=== PATIENT | female | born 1975 | race African-American/Black ===

== ENCOUNTER 2019-11-28 20:40 | Observation (INO) | payer OTHER ==
[2019-11-28 20:49] VITALS: BMI 26.3
--- NOTE | 2019-11-28 20:51 | PDOC ---
Rapid Medical Evaluation Time Seen by Provider: 11/28/19 20:49 Medical Evaluation: Allergies Allergy/AdvReac Type Severity Reaction Status Date / Time No Known Allergies Allergy Verified 10/25/14 12:00 11/28/19 20:49 This patient had rapid medical evaluation in triage cc: chest tightness today HPI: patient brought in by ambulance for chest tightness this afternoon States non compliant with b/p medication. States symptoms has since resolved PE: NAD clear lungs bilaterally heart s1s2 ext: no pedal edema Orders: ekg ordered This patient will proceed to ed for further evaluation. Discharge Disposition - Diagnosis Chest tightness - Referrals - Patient Instructions - Post Discharge Activity
--- NOTE | 2019-11-28 23:02 | PDOC ---
*Physical Exam - Vital Signs Last Vital Signs Temp Pulse Resp BP Pulse Ox 98.2 F 96 H 19 155/90 100 11/28/19 20:45 11/28/19 20:45 11/28/19 20:45 11/28/19 20:45 11/28/19 20:45 ED Treatment Course - LABORATORY CBC & Chemistry Diagram: 11/29/19 00:12 11/29/19 00:12 Medical Decision Making - Medical Decision Making 11/28/19 23:02 Patient seen by the advanced practice provider under my supervision. Ancillary testing reviewed as necessary. I agree with plan as outlined by the advanced practice provider. Discharge - Discharge Information Problems reviewed: Yes Clinical Impression/Diagnosis: Chest tightness - Follow up/Referral Referrals: Osito Hahn [Primary Care Provider] - - Patient Discharge Instructions - Post Discharge Activity
--- NOTE | 2019-11-28 23:32 | PDOC ---
History of Present Illness - General Chief Complaint: Blood Pressure Problem Stated Complaint: CHEST TIGHTNESS/HYPERTENSION Time Seen by Provider: 11/28/19 20:49 History Source: Patient - History of Present Illness Initial Comments: 11/29/19 00:39 44-year-old female with history of hypertension complaining of midsternal chest pain for since 8 PM. Denies nausea, vomiting, diaphoresis, dizziness, headache. Patient reports that symptom resolved. Patient reports that 1 week ago she started Norvasc for hypertension Past History - Past Medical History Allergies/Adverse Reactions: Allergies Allergy/AdvReac Type Severity Reaction Status Date / Time No Known Allergies Allergy Verified 11/29/19 02:14 Home Medications: Ambulatory Orders Amlodipine Besylate [Norvasc -] 5 mg PO DAILY 11/29/19 COPD: No HTN: Yes - Psycho Social/Smoking Cessation Hx Smoking Status: No Smoking History: Never smoked Number of Cigarettes Smoked Daily: 0 Hx Alcohol Use: No Substance Use Type: None *Physical Exam - Vital Signs Last Vital Signs Temp Pulse Resp BP Pulse Ox 98.2 F 96 H 19 155/90 100 11/28/19 20:45 11/28/19 20:45 11/28/19 20:45 11/28/19 20:45 11/28/19 20:45 - Physical Exam General Appearance: Yes: Appropriately Dressed Respiratory/Chest: positive: Lungs Clear, Normal Breath Sounds. negative: Chest Tender Cardiovascular: positive: Regular Rhythm, Regular Rate Gastrointestinal/Abdominal: positive: Normal Bowel Sounds, Soft. negative: Tender Extremity: positive: Normal Capillary Refill, Normal Inspection, Normal Range of Motion Integumentary: positive: Normal Color, Dry, Warm Neurologic: positive: Fully Oriented, Alert Heart Score/ECG Review - History History: Slightly suspicious - Electrocardiogram EKG: Normal - Age Age: </= 45 - Risk Factors Risk Factors Heart Score: Yes Hx Hypertension Based on the list above the patient has:: 1-2 risk factors - Troponin Troponin: >/=3x normal limit - Score Heart Score - Total: 3 - ECG Intrepretation Rhythm: Regular Rhythm Comment:: 11/29/19 01:29 T wave inversion in V3 ED Treatment Course - LABORATORY CBC & Chemistry Diagram: 11/29/19 00:12 11/29/19 00:12 Medical Decision Making - Medical Decision Making 11/29/19 01:30 A: chest pain P: cbc cmp cardiac EKG Chest xray 11/29/19 03:00 repeat EKG unchanged. pending repeat trop 11/29/19 06:09 repeat trop trending down. patient to be admitted for further management of care. Discharge - Discharge Information Problems reviewed: Yes Clinical Impression/Diagnosis: Chest pain Qualifiers: Chest pain type: unspecified Qualified Code(s): R07.9 - Chest pain, unspecified - Admission Yes - Follow up/Referral - Patient Discharge Instructions - Post Discharge Activity
[2019-11-29 00:29] LABS: BASO % 0.5 % (0-2.0); EOS % 0.1 % (0-4.5); HEMATOCRIT 41.7 % (32.4-45.2); HEMOGLOBIN 14.1 GM/dL (10.7-15.3); LYMPH % 27.4 % (8-40); MCH 31.4 pg (25.7-33.7); MCHC 33.9 g/dl (32.0-36.0); MEAN CELL VOLUME 92.8 fl (80-96); MEAN PLT VOLUME 8.6 fl (7.5-11.1); MONO % 5.6 % (3.8-10.2); NEUT % 66.4 % (42.8-82.8); PLATELET COUNT 233 K/MM3 (134-434); RDW 12.9 % (11.6-15.6); WHITE BLOOD COUNT 7.7 K/mm3 (4.0-10.0)
[2019-11-29] MEDS ORDERED: ASPIRIN 81 MG CHEWABLE TABLETS PO ONE (00:34)
[2019-11-29] MEDS ORDERED: ASPIRIN 81 MG CHEWABLE TABLETS ONE ×2 (00:38→07:59)
[2019-11-29 00:42] LABS: INR 1.02 (0.83-1.09)
[2019-11-29 01:00] LABS: ALBUMIN 4.3 g/dl (3.4-5.0); BILIRUBIN,TOTAL 0.6 mg/dL (0.2-1); CALCIUM 9.4 mg/dL (8.5-10.1); POTASSIUM 4.2 mmol/L (3.5-5.1)
[2019-11-29 01:11] LABS: URINE APPEARANCE CLEAR; URINE BILIRUBIN NEGATIVE (NEGATIVE); URINE COLOR YELLOW; URINE GLUCOSE (UA) NEGATIVE (NEGATIVE); URINE KETONE NEGATIVE (NEGATIVE); URINE LEUK ESTERASE NEGATIVE (NEGATIVE); URINE NITRITE NEGATIVE (NEGATIVE); URINE PROTEIN NEGATIVE (NEGATIVE); URINE UROBILINOGEN 0.2 mg/dL (0.2-1.0)
--- NOTE | 2019-11-29 02:41 | PN ---
Teaching Attending Note Name of Resident: Roque Elise ATTENDING PHYSICIAN STATEMENT I saw and evaluated the patient. I reviewed the resident's note and discussed the case with the resident. I agree with the resident's findings and plan as documented. SUBJECTIVE: 44-year-old woman with history of hypertension, Anxiety complaining of midsternal chest pain since 8 PM on 11/28/2019. No associated shortness of breath, nausea, vomiting, diaphoresis. Chest pain lasted less than 1 minute, has not had prior episodes of this. She was recently started on amlodipine for hypertension however has developed lower extremity swelling and is generally not tolerating this medication well so she has not been taking it. OBJECTIVE: Last Vital Signs Temp Pulse Resp BP Pulse Ox 98.2 F 94 H 18 150/94 100 11/28/19 20:45 11/29/19 01:33 11/29/19 01:33 11/29/19 01:33 11/29/19 01:33 GENERAL: Well developed, well nourished. Awake and alert. No acute distress. HEENT: Normocephalic, atraumatic. PERRLA, EOMI. No conjunctival pallor. Sclera are non- icteric. Moist mucous membranes. Oropharynx is clear. NECK: Supple. Full ROM. No JVD. Carotid pulses 2+ and symmetric, without bruits. No thyromegaly. No lymphadenopathy. CARDIOVASCULAR: Regular rate and rhythm. No murmurs, rubs, or gallops. Distal pulses are 2+ and symmetric. PULMONARY: No evidence of respiratory distress. Lungs clear to auscultation bilaterally. No wheezing, rales or rhonchi. ABDOMINAL: Soft. Non-tender. Non-distended. No rebound or guarding. No organomegaly. Normoactive bowel sounds. MUSCULOSKELETAL Normal range of motion at all joints. No bony deformities or tenderness. No CVA tenderness. EXTREMITIES: No cyanosis. No clubbing. No edema. No calf tenderness. SKIN: Warm and dry. Normal capillary refill. No rashes. No jaundice. PSYCHIATRIC: Cooperative. Good eye contact. Appropriate mood and affect. Abnormal Lab Results 11/29/19 11/29/19 00:12 00:12 Anion Gap 7 L Random Glucose 112 H Troponin I 0.12 H Chest x-ray reviewed ASSESSMENT AND PLAN: 44-year-old woman with Atypical chest pain that is now resolved with mildly elevated troponin. Sinus tachycardia, EKG was essentially normal. Doubt true ACS at this time Telemetry observation Cardiology evaluation Transthoracic echo Trend troponins Aspirin Statin Nitroglycerin sublingual as needed of chest pain #Uncontrolled hypertension Stop amlodipine and start hydrochlorothiazide Salt restriction UA SCDs for DVT prophylaxis
--- NOTE | 2019-11-29 03:02 | HP ---
CHIEF COMPLAINT: chest pain PCP: HISTORY OF PRESENT ILLNESS: Patient is a 44 year old female with history of hypertension (not adherent with Amlodipine), anxiety, presents with complaint of chest pain. Patient states that she was driving in her car approx 8PM on the way to grocery store when she experienced sudden onset chest pressure. Patient states symptoms were associated with shortness of breath, and palpitations. Lasted less than one minute before spontaneous resolution. Patient believes she may have had similar symptoms approx 10 years ago after of her first child. She endorses an ? exercise stress test that she was told was negative. Patient denies any cardiac catheterization or other cardiac workup. She admits that she was recently started on Amlodipine by her primary care physician, however has been non- adherent due to subjective pain in her legs after starting the medication. She states that when she checks her BP at home it is in the 120s / 80s. She last took Amlodipine two days ago. Currently comfortably resting in ED. Denies any recurrence of chest tightness or pain. Denies subjective fevers, chills, shortness of breath, chest pain, palpitations, abdominal pain, nausea, vomiting. DIRECTOR OF EDUCATION: female. LMP was last week. Sexually active with only; does not use contraceptives. ER course was notable for: (1) EKG, Troponin 0.12 (2) (3) Recent Travel: PAST MEDICAL HISTORY: hypertension PAST SURGICAL HISTORY: denies Family History: Noncontributory. Denies cardiac history in her maternal/ paternal lineage. Denies any known cancer history. Social History: Former pharmacist. Currently lives at home with her sister and two children. Independent in activities of daily living. Smoking: Denies Alcohol: Denies Drugs: Denies Allergies No Known Allergies Allergy (Verified 11/29/19 02:14) HOME MEDICATIONS: Home Medications Medication Instructions Recorded Amlodipine Besylate [Norvasc -] 5 mg PO DAILY 11/29/19 REVIEW OF SYSTEMS CONSTITUTIONAL: Absent: fever, chills, diaphoresis, generalized weakness, malaise, loss of appetite, weight change HEENT: Absent: rhinorrhea, nasal congestion, throat pain, throat swelling, difficulty swallowing, mouth swelling, ear pain, eye pain, visual changes CARDIOVASCULAR: Admits: chest pain (resolved). Absent: syncope, palpitations, irregular heart rate, lightheadedness, peripheral edema RESPIRATORY: Absent: cough, shortness of breath, dyspnea with exertion, orthopnea, wheezing, stridor, hemoptysis GASTROINTESTINAL: Absent: abdominal pain, abdominal distension, nausea, vomiting, diarrhea, constipation, melena, hematochezia GENITOURINARY: Absent: dysuria, frequency, urgency, hesitancy, hematuria, flank pain, genital pain MUSCULOSKELETAL: Absent: myalgia, arthralgia, joint swelling, back pain, neck pain SKIN: Absent: rash, itching, pallor HEMATOLOGIC/IMMUNOLOGIC: Absent: easy bleeding, easy bruising, lymphadenopathy, frequent infections ENDOCRINE: Absent: unexplained weight gain, unexplained weight loss, heat intolerance, cold intolerance NEUROLOGIC: Absent: headache, focal weakness or paresthesias, dizziness, unsteady gait, seizure, mental status changes, bladder or bowel incontinence PSYCHIATRIC: Absent: anxiety, depression, suicidal or homicidal ideation, hallucinations. PHYSICAL EXAMINATION Vital Signs - 24 hr 11/28/19 11/29/19 20:45 01:33 Temperature 98.2 F Pulse Rate 96 H Pulse Rate [ 94 H Apical] Respiratory 19 18 Rate Blood Pressure 155/90 Blood Pressure 150/94 [Left Arm] O2 Sat by Pulse 100 100 Oximetry (%) GENERAL: The patient is awake, alert, and fully oriented, in no acute distress. HEAD: Normocephalic, atraumatic. EYES: PERRL, extraocular movements intact, sclera anicteric. Left conjunctival injection. ENT: Oropharynx clear, without erythema or exudates. Dry mucous membranes. NECK: Trachea midline, full range of motion. Supple without lymphadenopathy. LUNGS: Breath sounds equal, clear to auscultation bilaterally. No wheezes, no crackles. No accessory muscle use. HEART: Regular rate and rhythm. S1, S2 without murmur, rub or gallop. ABDOMEN: Soft, nondistended, nontender to light and deep palpation x4 quadrants. No rebound tenderness, no guarding. Normoactive bowel sounds x4 quadrants. No hepatosplenomegaly, no masses appreciated. EXTREMITIES: 2+ radial, dorsalis pedis pulses bilaterally. Warm, well-perfused. No lower extremity edema bilaterally. NEUROLOGICAL: Cranial nerves II through XII grossly intact. Normal speech. No gross focal deficits. PSYCH: Normal mood, normal affect upon my encounter. SKIN: Warm, dry. Laboratory Results - last 24 hr 0211/29/19 11/29/19 00:12 00:12 00:12 WBC 7.7 RBC 4.50 Hgb 14.1 Hct 41.7 D MCV 92.8 MCH 31.4 MCHC 33.9 RDW 12.9 Plt Count 233 MPV 8.6 Absolute Neuts (auto) 5.1 Neutrophils % 66.4 D Lymphocytes % 27.4 Monocytes % 5.6 Eosinophils % 0.1 D Basophils % 0.5 Nucleated RBC % 0 PT with INR INR PTT (Actin FS) 26.4 Sodium Potassium Chloride Carbon Dioxide Anion Gap BUN Creatinine Est GFR (CKD-EPI)AfAm Est GFR (CKD-EPI)NonAf Random Glucose Calcium Total Bilirubin AST ALT Alkaline Phosphatase Creatine Kinase 182 Creatine Kinase Index No Result Required. CK-MB (CK-2) < 1.0 Troponin I 0.12 H Total Protein Albumin Urine Color Urine Appearance Urine pH Ur Specific [place] Urine Protein Urine Glucose (UA) Urine Ketones Urine Blood Urine Nitrite Urine Bilirubin Urine Urobilinogen Ur Leukocyte Esterase Urine HCG, Qual 11/29/19 11/29/19 11/29/19 00:12 00:12 01:00 WBC RBC Hgb Hct MCV MCH MCHC RDW Plt Count MPV Absolute Neuts (auto) Neutrophils % Lymphocytes % Monocytes % Eosinophils % Basophils % Nucleated RBC % PT with INR 12.00 INR 1.02 PTT (Actin FS) Sodium 138 Potassium 4.2 Chloride 107 Carbon Dioxide 24 Anion Gap 7 L BUN 9.0 Creatinine 1.0 Est GFR (CKD-EPI)AfAm 79.35 Est GFR (CKD-EPI)NonAf 68.46 Random Glucose 112 H Calcium 9.4 Total Bilirubin 0.6 AST 28 ALT 32 Alkaline Phosphatase 69 Creatine Kinase Creatine Kinase Index CK-MB (CK-2) Troponin I Total Protein 8.0 Albumin 4.3 Urine Color Urine Appearance Urine pH Ur Specific [place] Urine Protein Urine Glucose (UA) Urine Ketones Urine Blood Urine Nitrite Urine Bilirubin Urine Urobilinogen Ur Leukocyte Esterase Urine HCG, Qual Negative 11/29/19 01:00 WBC RBC Hgb Hct MCV MCH MCHC RDW Plt Count MPV Absolute Neuts (auto) Neutrophils % Lymphocytes % Monocytes % Eosinophils % Basophils % Nucleated RBC % PT with INR INR PTT (Actin FS) Sodium Potassium Chloride Carbon Dioxide Anion Gap BUN Creatinine Est GFR (CKD-EPI)AfAm Est GFR (CKD-EPI)NonAf Random Glucose Calcium Total Bilirubin AST ALT Alkaline Phosphatase Creatine Kinase Creatine Kinase Index CK-MB (CK-2) Troponin I Total Protein Albumin Urine Color Yellow Urine Appearance Clear Urine pH 7.0 Ur Specific [place] 1.011 Urine Protein Negative Urine Glucose (UA) Negative Urine Ketones Negative Urine Blood Negative Urine Nitrite Negative Urine Bilirubin Negative Urine Urobilinogen 0.2 Ur Leukocyte Esterase Negative Urine HCG, Qual ASSESSMENT/PLAN: Patient is a 44 year old female with history of hypertension (not adherent with Amlodipine), anxiety, presents with complaint of chest pain. Atypical chest pressure -Single isolated incident with spontaneous resolution. Troponin downtrending. Less likely ACS. -EKG reveals sinus rhythm at 82BPM, without ischemic changes. -Troponins 0.12 -> 0.07 -Telemetry monitoring -Cardiac transthoracic ECHO -Cardiology evaluation (Dr. Weiner) -Will keep NPO pending cardiology evaluation in anticipation of potential cardiac workup. -Follow TSH, HbA1c. Hypertension -Patient admits lower extremity discomfort with Amlodipine. Will change to Hydrochlorothiazide (S guidelines; first line antihypertensive in patient). -Monitor BP, BMP closely Anxiety -Patient currently feels calm. Not on any SSRI, mediations at home. FEN -IV normal saline at 100mL/ hour -Follow BMP -NPO, pending cardiology evaluation Prophylaxis -SCDs bilateral lower extremities, early ambulation Disposition -Telemetry observation. Visit type - Emergency Visit Emergency Visit: Yes ED Registration Date: 11/29/19 Care time: The patient presented to the Emergency Department on the above date and was hospitalized for further evaluation of their emergent condition. - New Patient This patient is new to me today: Yes Date on this admission: 11/29/19 - Critical Care Critical Care patient: No ATTENDING PHYSICIAN STATEMENT I saw and evaluated the patient. I reviewed the resident's note and discussed the case with the resident. I agree with the resident's findings and plan as documented. SUBJECTIVE: OBJECTIVE: ASSESSMENT AND PLAN:
[2019-11-29] MEDS: SODIUM CHLORIDE 1,000 ML IV SCH (03:55)
[2019-11-29 06:36] LABS: HEMATOCRIT 38.3 % (32.4-45.2); MCH 31.2 pg (25.7-33.7); MCHC 33.9 g/dl (32.0-36.0); MEAN CELL VOLUME 92.2 fl (80-96); MEAN PLT VOLUME 8.5 fl (7.5-11.1); PLATELET COUNT 223 K/MM3 (134-434); RBC 4.16 M/mm3 (3.60-5.2); RDW 12.7 % (11.6-15.6); WHITE BLOOD COUNT 5.8 K/mm3 (4.0-10.0)
[2019-11-29 07:08] LABS: BLOOD UREA NITROGEN 7.1 mg/dL (7-18); CALCIUM 8.9 mg/dL (8.5-10.1); CREATININE 0.9 mg/dL (0.55-1.3); MAGNESIUM 1.9 mg/dL (1.8-2.4); PHOSPHOROUS 3.2 mg/dL (2.5-4.9); POTASSIUM 3.9 mmol/L (3.5-5.1)
[2019-11-29] MEDS: HYDROCHLOROTHIAZIDE 25 MG TABLET (FP) PO SCH ×2 (07:55→10:12)
[2019-11-29] MEDS ORDERED: HYDROCHLOROTHIAZIDE 25 MG TABLET (FP) ONE (07:59)
[2019-11-29] MEDS: ASPIRIN 81 MG CHEWABLE TABLETS PO SCH (09:32)
[2019-11-29 10:03] LABS: COCAINE, UR NEGATIVE ng/ml (CUTOFF=300); METHADONE, UR NEGATIVE ng/ml (CUTOFF=300); OPIATES, URI NEGATIVE ng/ml (CUTOFF=300); PHENCYCLIDINE,URINE NEGATIVE ng/ml (CUTOFF=25); URINE AMPHETAMINES NEGATIVE ng/ml (CUTOFF=500); URINE BARBITURATES NEGATIVE ng/ml (CUTOFF=200); URINE BENZODIAZEPINES NEGATIVE ng/ml (CUTOFF=200)
[2019-11-29] MEDS: ENOXAPARIN NA (PORCINE) 40 MG/0.4 ML DISP.SYRIN SQ SCH (10:13)
--- NOTE | 2019-11-29 10:23 | CON.CARD ---
Consult Consult Specialty:: Cardiology Referred by:: Hospitalist Reason for Consultation:: Cardiac evaluation - History of Present Illness Chief Complaint: Chest pressure History of Present Illness: Patient is a 44 year old female with no significant PMH except for HTN for which she was just given Amlodipine [address] a [facility] recently (but did not take it past few days) presented to ED with episode of mid sternal chest pressure non-radiating while driving her car. She stopped the car and the pressure dissipated. She came into the ED for further evaluation. Currently, she denies chest pain, shortness of breath or palpitations. She denies paroxysmal nocturnal dyspnea or orthopnea. She denies fever or chills. She denies nausea, vomiting, diarrhea or abdominal pain. She denies headache or lightheadedness.Troponin was elevated initially to 0.12 and now down to 0.05. - History Source History Provided By: Patient, Medical Record Limitations to Obtaining History: No Limitations - Past Medical History Cardio/Vascular: Yes: HTN. No: Hyperlipdemia Endocrine: No: Diabetes Mellitus - Past Surgical History Past Surgical History: Yes: None - Alcohol/Substance Use Hx Alcohol Use: No History of Substance Use: reports: None - Smoking History Smoking history: Never smoked Aproximately how many cigarettes per day: 0 Home Medications - Allergies Allergies/Adverse Reactions: Allergies Allergy/AdvReac Type Severity Reaction Status Date / Time No Known Allergies Allergy Verified 11/29/19 02:14 - Home Medications Home Medications: Ambulatory Orders Amlodipine Besylate [Norvasc -] 5 mg PO DAILY 11/29/19 Family Medical History Family History: Denies Review of Systems - Review of Systems Constitutional: denies: Chills, Fever Cardiovascular: reports: Chest Pain. denies: Palpitations, Shortness of Breath Respiratory: denies: Cough, Hemoptysis, Orthopnea, PND, SOB, SOB on Exertion Gastrointestinal: denies: Abdominal Pain, Constipation, Diarrhea, Melena, Nausea , Rectal Bleeding, Vomiting Genitourinary: denies: Dysuria, Hematuria Musculoskeletal: denies: Back Pain, Joint Pain Neurological: denies: Dizziness, Headache, Seizure, Syncope Vital Signs: Vital Signs Temperature 98.2 F 11/28/19 20:45 Pulse Rate 76 11/29/19 05:33 Respiratory Rate 18 11/29/19 05:33 Blood Pressure 137/94 11/29/19 05:33 O2 Sat by Pulse Oximetry (%) 100 11/29/19 05:33 - Other Data Labs, Other Data: CBC, BMP 11/29/19 05:53 11/29/19 05:53 INR, PTT INR 1.02 (0.83-1.09) 11/29/19 00:12 Troponin, BNP 11/29/19 11/29/19 11/29/19 00:12 03:45 05:53 Troponin I 0.12 H 0.07 H 0.05 Normal sinus rhythm with normal ECG Echo: Pending Imaging - Results Chest X-ray: Report Reviewed (No acute pathology) EKG: Report Reviewed Problem List - Problems (1) HTN (hypertension) Code(s): I10 - ESSENTIAL (PRIMARY) HYPERTENSION (2) Elevated troponin Code(s): R79.89 - OTHER SPECIFIED ABNORMAL FINDINGS OF BLOOD CHEMISTRY (3) Chest pain Code(s): R07.9 - CHEST PAIN, UNSPECIFIED Qualifiers: Chest pain type: unspecified Qualified Code(s): R07.9 - Chest pain, unspecified Assessment/Plan 1. Chest pain syndrome with mildly elevated troponin rule out CAD 2. HTN PLAN: 1. Trend troponin - diminishing 2. ASA 81 mg QD 3. D/C HCTZ and add Amlodipine 5 mg QD 4. Echocardiography to assess LV/RV and valvular function 5. Nuclear MPI 6. Fasting lipid panel Further plans are to follow Aníbal Valderrama MD
--- NOTE | 2019-11-29 13:01 | EKG ---
Test Reason : Blood Pressure : / mmHG Vent. Rate : 084 BPM Atrial Rate : 084 BPM P-R Int : 154 ms QRS Dur : 064 ms QT Int : 358 ms P-R-T Axes : 071 037 034 degrees QTc Int : 423 ms NORMAL SINUS RHYTHM NORMAL ECG WHEN COMPARED WITH ECG OF 28-MAY-2010 10:13, NO SIGNIFICANT CHANGE WAS FOUND Confirmed by Arjun Clark MD ([id number]) on 11/29/2019 1:01:17 PM Referred By: Confirmed By:Arjun Clark MD
--- NOTE | 2019-11-29 13:02 | EKG ---
Test Reason : Blood Pressure : / mmHG Vent. Rate : 082 BPM Atrial Rate : 082 BPM P-R Int : 150 ms QRS Dur : 070 ms QT Int : 360 ms P-R-T Axes : 073 039 045 degrees QTc Int : 420 ms NORMAL SINUS RHYTHM NONSPECIFIC T WAVE ABNORMALITY ABNORMAL ECG Confirmed by Arjun Clark MD ([id number]) on 11/29/2019 1:02:36 PM Referred By: Confirmed By:Arjun Clark MD
--- NOTE | 2019-11-29 13:29 | ECHO ---
Version: 1 Name: JENNIE LANGFORD Exam: Adult Echocardiogram Study Date: 11/29/2019, 11:17 AM Age: 44 Years MMode/2D Measurements & Calculations IVSd: 0.80 cm LVIDs: 2.7 cm LVIDd: 3.9 cm LVPWd: 0.98 cm LVOT diam: 1.89 cm Ao root diam: 2.9 cm LA dimension: 2.8 cm Doppler Measurements & Calculations MV E max kleber: 67.5 cm/sec Med E/e': 9.8 MV A max kleber: 63.3 cm/sec Med Peak E' Kleber: 6.9 cm/sec MV E/A: 1.07 Lat E/e': 5.6 Lat Peak E' Kleber: 12.0 cm/sec Ao max P.7 mmHg Ao V2 max: 138.5 cm/sec Left Ventricle The left ventricular size, thickness and function are normal. Ejection Fraction = 65%. The transmitr al spectral Doppler flow pattern is normal for age. Right Ventricle The right ventricle is normal in size and function. Atria Normal left and right atrial size and function. Mitral Valve The mitral valve is normal. There is trace mitral regurgitation. Tricuspid Valve The tricuspid valve is normal in structure and function. There is mild tricuspid regurgitation. Aortic Valve The aortic valve is normal in structure and function. Pulmonic Valve The pulmonic valve is not well seen, but is grossly normal. Great Vessels The aortic root is normal size. Normal aortic arch, descending and ascending aorta. Pericardium/Pleura There is no pericardial effusion. Summary Statements The left ventricular size, thickness and function are normal Ejection Fraction = 65%. The transmitral spectral Doppler flow pattern is normal for age. The right ventricle is normal in size and function. Normal left and right atrial size and function. The mitral valve is normal. There is trace mitral regurgitation. The tricuspid valve is normal in structure and function. There is mild tricuspid regurgitation. The aortic valve is normal in structure and function. The pulmonic valve is not well seen, but is grossly normal. The aortic root is normal size. Normal aortic arch, descending and ascending aorta There is no pericardial effusion. Jose Niremberg 11/29/2019, 1:28 PM Ordering Physician: Epifanio Platt Referring Physician: EPIFANIO PLATT Performed By: Mandie Winter
--- NOTE | 2019-11-29 15:00 | PN ---
Physical Exam: SUBJECTIVE: Patient seen and examined at beside. Echo WNL, awaiting MPI for chest discomfort and trops which are now resolved. VS otherwise stable. Patient comfortable. OBJECTIVE: Vital Signs Period Temp Pulse Resp BP Sys/Resendiz Pulse Ox Last 24 Hr 98.2 F 76-96 18-19 129-155/89-94 100-100 GENERAL: The patient is awake, alert, and fully oriented, in no acute distress. HEAD: Normal with no signs of trauma. EYES: PERRL, extraocular movements intact, sclera anicteric, conjunctiva clear. No ptosis. ENT: Ears normal, nares patent, oropharynx clear without exudates, moist mucous membranes. NECK: Trachea midline, full range of motion, supple. LUNGS: Breath sounds equal, clear to auscultation bilaterally, no wheezes, no crackles, no accessory muscle use. HEART: Regular rate and rhythm, S1, S2 without murmur, rub or gallop. ABDOMEN: Soft, nontender, nondistended, normoactive bowel sounds, no guarding, no rebound, no hepatosplenomegaly, no masses. EXTREMITIES: 2+ pulses, warm, well-perfused, no edema. NEUROLOGICAL: Cranial nerves II through XII grossly intact. Normal speech, gait not observed. PSYCH: Normal mood, normal affect. SKIN: Warm, dry, normal turgor, no rashes or lesions noted Laboratory Results - last 24 hr 11/29/19 11/29/19 11/29/19 00:12 00:12 00:12 WBC 7.7 RBC 4.50 Hgb 14.1 Hct 41.7 D MCV 92.8 MCH 31.4 MCHC 33.9 RDW 12.9 Plt Count 233 MPV 8.6 Absolute Neuts (auto) 5.1 Neutrophils % 66.4 D Lymphocytes % 27.4 Monocytes % 5.6 Eosinophils % 0.1 D Basophils % 0.5 Nucleated RBC % 0 PT with INR INR PTT (Actin FS) 26.4 Sodium Potassium Chloride Carbon Dioxide Anion Gap BUN Creatinine Est GFR (CKD-EPI)AfAm Est GFR (CKD-EPI)NonAf Random Glucose Hemoglobin A1c % Calcium Phosphorus Magnesium Total Bilirubin AST ALT Alkaline Phosphatase Creatine Kinase 182 Creatine Kinase Index No Result Required. CK-MB (CK-2) < 1.0 Troponin I 0.12 H Total Protein Albumin TSH Urine Color Urine Appearance Urine pH Ur Specific Thorp Urine Protein Urine Glucose (UA) Urine Ketones Urine Blood Urine Nitrite Urine Bilirubin Urine Urobilinogen Ur Leukocyte Esterase Urine HCG, Qual Opiates Screen Methadone Screen Barbiturate Screen Phencyclidine Screen Ur Amphetamines Screen MDMA (Ecstasy) Screen Benzodiazepines Screen Cocaine Screen U Marijuana (THC) Screen 11/29/19 11/29/19 11/29/19 00:12 00:12 01:00 WBC RBC Hgb Hct MCV MCH MCHC RDW Plt Count MPV Absolute Neuts (auto) Neutrophils % Lymphocytes % Monocytes % Eosinophils % Basophils % Nucleated RBC % PT with INR 12.00 INR 1.02 PTT (Actin FS) Sodium 138 Potassium 4.2 Chloride 107 Carbon Dioxide 24 Anion Gap 7 L BUN 9.0 Creatinine 1.0 Est GFR (CKD-EPI)AfAm 79.35 Est GFR (CKD-EPI)NonAf 68.46 Random Glucose 112 H Hemoglobin A1c % Calcium 9.4 Phosphorus Magnesium Total Bilirubin 0.6 AST 28 ALT 32 Alkaline Phosphatase 69 Creatine Kinase Creatine Kinase Index CK-MB (CK-2) Troponin I Total Protein 8.0 Albumin 4.3 TSH Urine Color Urine Appearance Urine pH Ur Specific Thorp Urine Protein Urine Glucose (UA) Urine Ketones Urine Blood Urine Nitrite Urine Bilirubin Urine Urobilinogen Ur Leukocyte Esterase Urine HCG, Qual Negative Opiates Screen Methadone Screen Barbiturate Screen Phencyclidine Screen Ur Amphetamines Screen MDMA (Ecstasy) Screen Benzodiazepines Screen Cocaine Screen U Marijuana (THC) Screen 11/29/19 11/29/19 11/29/19 01:00 03:45 05:53 WBC 5.8 RBC 4.16 Hgb 13.0 Hct 38.3 MCV 92.2 MCH 31.2 MCHC 33.9 RDW 12.7 Plt Count 223 MPV 8.5 Absolute Neuts (auto) Neutrophils % Lymphocytes % Monocytes % Eosinophils % Basophils % Nucleated RBC % PT with INR INR PTT (Actin FS) Sodium Potassium Chloride Carbon Dioxide Anion Gap BUN Creatinine Est GFR (CKD-EPI)AfAm Est GFR (CKD-EPI)NonAf Random Glucose Hemoglobin A1c % Calcium Phosphorus Magnesium Total Bilirubin AST ALT Alkaline Phosphatase Creatine Kinase 158 Creatine Kinase Index No Result Required. CK-MB (CK-2) < 1.0 Troponin I 0.07 H Total Protein Albumin TSH Urine Color Yellow Urine Appearance Clear Urine pH 7.0 Ur Specific Thorp 1.011 Urine Protein Negative Urine Glucose (UA) Negative Urine Ketones Negative Urine Blood Negative Urine Nitrite Negative Urine Bilirubin Negative Urine Urobilinogen 0.2 Ur Leukocyte Esterase Negative Urine HCG, Qual Opiates Screen Methadone Screen Barbiturate Screen Phencyclidine Screen Ur Amphetamines Screen MDMA (Ecstasy) Screen Benzodiazepines Screen Cocaine Screen U Marijuana (THC) Screen 11/29/19 11/29/19 11/29/19 05:53 05:53 09:35 WBC RBC Hgb Hct MCV MCH MCHC RDW Plt Count MPV Absolute Neuts (auto) Neutrophils % Lymphocytes % Monocytes % Eosinophils % Basophils % Nucleated RBC % PT with INR INR PTT (Actin FS) Sodium 140 Potassium 3.9 Chloride 108 H Carbon Dioxide 24 Anion Gap 8 BUN 7.1 Creatinine 0.9 Est GFR (CKD-EPI)AfAm 90.13 Est GFR (CKD-EPI)NonAf 77.76 Random Glucose 110 H Hemoglobin A1c % 4.6 Calcium 8.9 Phosphorus 3.2 Magnesium 1.9 Total Bilirubin AST ALT Alkaline Phosphatase Creatine Kinase Creatine Kinase Index CK-MB (CK-2) Troponin I 0.05 Total Protein Albumin TSH 1.32 Urine Color Urine Appearance Urine pH Ur Specific Thorp Urine Protein Urine Glucose (UA) Urine Ketones Urine Blood Urine Nitrite Urine Bilirubin Urine Urobilinogen Ur Leukocyte Esterase Urine HCG, Qual Opiates Screen Negative Methadone Screen Negative Barbiturate Screen Negative Phencyclidine Screen Negative Ur Amphetamines Screen Negative MDMA (Ecstasy) Screen Negative Benzodiazepines Screen Negative Cocaine Screen Negative U Marijuana (THC) Screen Negative Active Medications Generic Name Dose Route Start Last Admin Trade Name Freq PRN Reason Stop Dose Admin Amlodipine Besylate 5 mg 11/30/19 10:00 Norvasc - PO DAILY [facility] Aspirin 81 mg 11/29/19 10:00 11/29/19 09:32 Asa - PO 81 mg DAILY [facility] Administration Enoxaparin Sodium 40 mg 11/29/19 10:00 11/29/19 10:13 Lovenox - SQ Not Given DAILY [facility] Sodium Chloride 1,000 mls @ 100 mls/hr 11/29/19 03:15 11/29/19 03:55 Normal Saline - IV 100 mls/hr ASDIR ANMOL Administration ASSESSMENT/PLAN: 44 La[place] F presents with atypical chest pain that is now resolved with mildly elevated troponin trended down. Echo unremarkable, cardiology requesting MPI for further evaluation. Atypical CP now resolved, awaiting MPI Echo unremarkable, trops trended down, EKG unremarkable for acute ischemia, ? demand from uncontrolled BP cont. Telemetry observation Cardiology evaluation: Dr Weiner Cont. ASA/Statin HTN uncontrolled due to non-compliance cont. BP meds Salt restriction SCDs for DVT prophylaxis Visit type - Emergency Visit Emergency Visit: Yes ED Registration Date: 11/29/19 Care time: The patient presented to the Emergency Department on the above date and was hospitalized for further evaluation of their emergent condition. - New Patient This patient is new to me today: Yes Date on this admission: 11/29/19 - Critical Care Critical Care patient: No - Discharge Referral Referred to [facility] Med [facility].: No
[2019-11-30] MEDS: SODIUM CHLORIDE 1,000 ML IV SCH (04:34)
[2019-11-30] MEDS ORDERED: amLODIPine BESYLATE 5 MG TABLET (FP) PO SCH (10:00)
[2019-11-30] MEDS: ASPIRIN 81 MG CHEWABLE TABLETS PO SCH (10:29)
[2019-11-30] MEDS: ENOXAPARIN NA (PORCINE) 40 MG/0.4 ML DISP.SYRIN SQ SCH (10:29)
[2019-11-30 12:34] VITALS: BP 127/72; PULSE 84; TEMP 98.5
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
== END 2019-11-30 13:10 | disposition home or self-care (01) ==
LOC: JER 20:40 → JERBED 11-29 01:58
PROVIDERS: ADMIT Internal Medicine
PROC: 3E0337Z Introduction of Electrolytic and Water Balance Substance into Peripheral Vein, Percutaneous Approach (ICD-10-PCS; principal; 2019-11-29)
PROC: 3E013GC Introduction of Other Therapeutic Substance into Subcutaneous Tissue, Percutaneous Approach (ICD-10-PCS; 2019-11-29)
DX: R07.89 Other chest pain (principal); R77.8 Other specified abnormalities of plasma proteins; I10 Essential (primary) hypertension; F41.9 Anxiety disorder, unspecified; Z91.14 Patient's other noncompliance with medication regimen
CPT/HCPCS: 36415; 71046-TC-FY; 78452-TC; 80048; 80053; 80061; 80307; 81003; 82550; 82553; 83036; 83721; 83735; 84100; 84443; 84484; 84703; 85025; 85027; 85610; 85730; 93005; 93010; 93017; 93306-TC; 96372; 99285-25; A9502; G0378; J7030